=== PATIENT | female | born 1990 | race Two or more races ===

== ENCOUNTER → 2017-08-18 | Outpatient (CLI) | payer OTHER ==
[2017-08-18 14:06] LABS: ADD MAN DIFF? NO
[2017-08-18 14:12] LABS: BASO # 0.1 x10^3/uL (0.0-0.2); BASO % 1 % (0-3); EOS # 0.4 x10^3/uL (0.0-0.7); EOS % 5 % (0-3); HEMATOCRIT 40.7 % (36.0-47.0); HEMOGLOBIN 13.6 g/dL (12.0-15.5); LYMPH # 2.2 x10^3/uL (1.0-4.8); LYMPH % 26 % (24-48); MEAN CORPUSCULAR HEMOGLOBIN 30 pg (25-35); MEAN CORPUSCULAR HGB CONC 33 g/dL (31-37); MEAN CORPUSCULAR VOLUME 89 fL (79-100); MONO # 0.5 x10^3/uL (0.0-1.1); MONO % 6 % (0-9); NEUT # 5.5 x10^3uL (1.8-7.7); NEUT % 63 % (31-73); PLATELET COUNT 299 x10^3/uL (140-400); RED BLOOD COUNT 4.57 x10^6/uL (3.50-5.40); RED CELL DISTRIBUTION WIDTH 13.4 % (11.5-14.5); WHITE BLOOD COUNT 8.8 x10^3/uL (4.0-11.0)
[2017-08-18 14:37] LABS: ALBUMIN 3.5 g/dL (3.4-5.0); ALBUMIN/GLOBULIN RATIO 0.8 (1.0-1.7); ALK PHOS 69 U/L (46-116); ALT (SGPT) 24 U/L (14-59); ANION GAP 7 (6-14); AST (SGOT) 16 U/L (15-37); BLOOD UREA NITROGEN 8 mg/dL (7-20); BUN/CREATININE RATIO 11 (6-20); CARBON DIOXIDE 29 mmol/L (21-32); CHLORIDE 102 mmol/L (98-107); CHOLESTEROL 175 mg/dL (0-200); CHOLESTEROL/HDL RATIO 4.5; CREATININE 0.7 mg/dL (0.6-1.0); GLUCOSE 94 mg/dL (70-99); HDLC 39 mg/dL (40-60); LDLC 115 mg/dL (0-100); NON-HDL CHOLESTEROL 136 mg/dL (0-129); SODIUM 138 mmol/L (136-145); TOTAL BILIRUBIN 0.3 mg/dL (0.2-1.0); TOTAL PROTEIN 7.9 g/dL (6.4-8.2); TRIGLYCERIDES 104 mg/dL (0-150); VLDLC 21 mg/dL (0-40)
[2017-08-18 14:47] LABS: FREE T4 1.07 ng/dL (0.76-1.46)
[2017-08-18 14:47] LABS: THYROID STIM HORMONE (TSH) 2.366 uIU/mL (0.358-3.74)
[2017-08-19 05:19] LABS: RHEUMATOID FACTOR <10.0 IU/mL (0.0-13.9)
[2017-08-23 10:14] LABS: ANA INTERP Negative (.)
== END | disposition home or self-care (01) ==
LOC: RAD 13:50
DX: Z13.1 Encounter for screening for diabetes mellitus (principal); Z13.220 Encounter for screening for lipoid disorders; M25.562 Pain in left knee; M25.561 Pain in right knee
CPT/HCPCS: 36415; 73565; 80053; 80061; 84439; 84443; 85025; 86038; 86431

== ENCOUNTER 2018-03-09 11:21 | Emergency (ER) | payer OTHER ==
[~2018-03-09] VITALS: Ht 165.1 cm; Wt 78.5 kg
[2018-03-09 11:36] VITALS: BP 141/79
[2018-03-09 11:50] LABS: BILIRUBIN,URINE NEGATIVE (NEG); CLARITY,URINE CLEAR; COLOR,URINE YELLOW; NITRITE,URINE NEGATIVE (NEG); PH,URINE 6.5; PROTEIN,URINE NEGATIVE (NEG-TRACE)
[2018-03-09 12:08] LABS: BACTERIA,URINE MODERATE /HPF (0-FEW); RBC,URINE 0 /HPF (0-2); SQUAMOUS EPITHELIAL CELL,UR MOD /LPF
[2018-03-09] MEDS ORDERED: CIPR500T94 PO (12:48)
--- NOTE | 2018-03-09 13:55 | PHYS DOC ---
Past Medical History Past Medical History: No Pertinent History Past Surgical History: Appendectomy Alcohol Use: Rarely Drug Use: None Adult General Chief Complaint Chief Complaint: PAIN ON URINATION HPI HPI Patient is a 27 year old female who presents with pain on urination 2 days. She states that it is a burning sensation. She also has generalized lower back pain, subjective fever and has had chills at home. She denies nausea or vomiting. She is afebrile here. Review of Systems Review of Systems Constitutional: See history of present illness Eyes: Denies change in visual acuity, redness, or eye pain [] HENT: Denies nasal congestion or sore throat [] Respiratory: Denies cough or shortness of breath [] Cardiovascular: No additional information not addressed in HPI [] GI: Denies abdominal pain, nausea, vomiting, bloody stools or diarrhea [] : See history of present illness Musculoskeletal: Denies back pain or joint pain [] Integument: Denies rash or skin lesions [] Neurologic: Denies headache, focal weakness or sensory changes [] Endocrine: Denies polyuria or polydipsia [] All other systems were reviewed and found to be within normal limits, except as documented in this note. Allergies Allergies Allergies Coded Allergies Type Severity Reaction Last Updated Verified No Known Drug Allergies 12/17/15 No Physical Exam Physical Exam Constitutional: Well developed, well nourished, no acute distress, non-toxic appearance. [] HENT: Normocephalic, atraumatic, bilateral external ears normal, oropharynx moist, no oral exudates, nose normal. [] Eyes: PERRLA, EOMI, conjunctiva normal, no discharge. [] Neck: Normal range of motion, no tenderness, supple, no stridor. [] Cardiovascular:Heart rate regular rhythm, no murmur [] Lungs & Thorax: Bilateral breath sounds clear to auscultation [] Abdomen: Bowel sounds normal, soft, no tenderness, no masses, no pulsatile masses. [] Skin: Warm, dry, no erythema, no rash. [] Back: Generalized low back tenderness, no CVA tenderness. [] Extremities: No tenderness, no cyanosis, no clubbing, ROM intact, no edema. [] Neurologic: Alert and oriented X 3, normal motor function, normal sensory function, no focal deficits noted. [] Psychologic: Affect normal, judgement normal, mood normal. [] Current Patient Data Vital Signs Vital Signs Date Time Temp Pulse Resp B/P (MAP) Pulse Ox O2 Delivery O2 Flow Rate FiO2 03/09/18 11:36 98.5 101 20 141/79 (99) 96 Nasal Cannula 98.5 Lab Values Laboratory Tests Test 03/09/18 11:40 03/09/18 11:49 Urine Collection Type Unknown Urine Color Yellow Urine Clarity Clear Urine pH 6.5 Urine Specific [place] 1.025 Urine Protein Negative mg/dL (NEG-TRACE) Urine Glucose (UA) Negative mg/dL (NEG) Urine Ketones (Stick) Negative mg/dL (NEG) Urine Blood Negative (NEG) Urine Nitrite Negative (NEG) Urine Bilirubin Negative (NEG) Urine Urobilinogen Dipstick 1.0 mg/dL (0.2 mg/dL) Urine Leukocyte Esterase Small (NEG) Urine RBC 0 /HPF (0-2) Urine WBC 5-10 /HPF (0-4) Urine Squamous Epithelial Cells Mod /LPF Urine Bacteria Moderate /HPF (0-FEW) Urine Mucus Slight /LPF POC Urine HCG, Qualitative Hcg negative (Negative) EKG EKG [] Radiology/Procedures Radiology/Procedures [] Course & Med Decision Making Course & Med Decision Making Pertinent Labs and Imaging studies reviewed. (See chart for details) [] Dragon Disclaimer Dragon Disclaimer This electronic medical record was generated, in whole or in part, using a voice recognition dictation system. Departure Departure Impression: Primary Impression: Urinary tract infection Disposition: HOME, SELF-CARE Condition: STABLE Patient Instructions: Urinary Tract Infection Additional Instructions: Increase fluids and rest. Follow-up with your primary care provider in one week for urine recheck or return to the emergency department if worsening. Scripts Ciprofloxacin Hcl (CIPRO) 500 Mg Tablet 1 TAB PO BID, #14 TAB Prov: MAIRA MAYORGA APRN 03/09/18 MAIRA MAYORGA APRN Mar 09, 2018 13:55
== END 2018-03-09 12:55 | disposition home or self-care (01) ==
LOC: ER 11:21
DX: N39.0 Urinary tract infection, site not specified (principal); Z90.89 Acquired absence of other organs
CPT/HCPCS: 81001; 81025; 87086; 99284

== ENCOUNTER → 2018-09-14 | Outpatient (CLI) | payer OTHER ==
[~2018-09-14] MED LIST: CIPR500T94 PO
[2018-09-15 02:11] LABS: HEMOGLOBIN A1C 5.7 % (4.8-5.6)
== END | disposition home or self-care (01) ==
LOC: LAB 11:48
PROVIDERS: ATTEND Family Medicine
DX: Z00.01 Encounter for general adult medical examination with abnormal findings (principal)
CPT/HCPCS: 36415; 83036

== ENCOUNTER 2018-12-09 22:20 | Emergency (ER) | payer OTHER ==
[~2018-12-09] VITALS: Ht 165.1 cm; Wt 83.9 kg
[2018-12-09 22:25] VITALS: BP 166/91
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
[2018-12-09] MEDS ORDERED: NAPR500T8 PO (23:31)
[2018-12-09] MEDS ORDERED: TRIA15OI TP (23:31)
[2018-12-09] MEDS ORDERED: CYCL10TA2 PO (23:31)
[2018-12-09] MEDS ORDERED: diphenhydrAMINE HCL 25 MG CAPSULE PO ONE (23:45)
[2018-12-09] MEDS ORDERED: CYCLOBENZAPRINE 10 MG TABLET. PO ONE (23:45)
[2018-12-09] MEDS ORDERED: predniSONE 10 MG TABLET PO ONE (23:45)
[2018-12-09] MEDS ORDERED: NAPROXEN 500 MG TABLET PO ONE (23:45)
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
== END 2018-12-09 23:44 | disposition home or self-care (01) ==
LOC: ER 22:20
DX: S50.12XA Contusion of left forearm, initial encounter (principal); S70.02XA Contusion of left hip, initial encounter; L25.9 Unspecified contact dermatitis, unspecified cause; R07.81 Pleurodynia; W55.12XA Struck by horse, initial encounter; Y93.89 Activity, other specified; Y92.89 Other specified places as the place of occurrence of the external cause; Y99.8 Other external cause status
CPT/HCPCS: 71101; 73090; 73502; 99284; J7512; Q0163

== ENCOUNTER → 2019-04-14 | Outpatient (CLI) | payer OTHER ==
[~2019-04-14] MED LIST changes: +CYCL10TA2 PO; +NAPR500T8 PO; +TRIA15OI TP
[2019-04-14 12:47] LABS: ALBUMIN 4.1 g/dL (3.4-5.0); ALBUMIN/GLOBULIN RATIO 0.9 (1.0-1.7); CREATININE 0.7 mg/dL (0.6-1.0); GFR 100.4; POTASSIUM 3.9 mmol/L (3.5-5.1); TOTAL BILIRUBIN 0.4 mg/dL (0.2-1.0); TOTAL PROTEIN 8.8 g/dL (6.4-8.2)
[2019-04-14 12:51] LABS: CHOLESTEROL/HDL RATIO 5.2
--- NOTE | 2019-04-14 13:10 | RAD ---
Examination: MRI of the right knee without contrast HISTORY: History of right knee pain, trauma, fall, anteromedial knee pain COMPARISON: None available TECHNIQUE: Multiplanar, multisequence MR imaging of the right knee was performed without contrast. Findings: The anterior cruciate ligament, posterior cruciate ligament appear intact. The medial meniscus, lateral meniscus appear intact. The extensor mechanism is intact. The medial collateral ligament is intact. Lateral collateral ligamentous complex including the fibular collateral ligament, biceps femoris tendon, popliteus tendon appear intact. Small knee joint effusion is identified. Deep fissuring of cartilage identified in the patellofemoral compartment. There is a 1.4 cm isointense T1 increased signal identified abutting the deep portion of the patella and extending inferiorly best visualized on series 4 image #13 could be scarring change or fibrosis or synovial thickening. Mild increased T2 signal identified in the Hoffa's fat pad laterally deep to the infrapatellar tendon. Minimal lateral patellar tilting identified. Tiny popliteal cyst. Small knee joint effusion. IMPRESSION: 1. A 1.4 cm isointense T1 increased signal identified abutting the deep portion of the inferior medial patella best visualized on series 4 image #13 could be scarring change or fibrosis or synovial thickening. 2. Mild increased T2 signal identified in the Hoffa's fat pad laterally deep to the infrapatellar tendon could be secondary to impingement. 3. Grade II chondromalacia patella. 4. Small knee joint effusion with a tiny popliteal cyst. Electronically signed by: Max Riggins MD (04/14/2019 1:07 PM) [id number]
--- NOTE | 2019-04-14 14:02 | RAD ---
EXAM: Bilateral knees, standing view. HISTORY: Pain. COMPARISON: None. FINDINGS: A frontal view of the knees is obtained. There is no fracture, dislocation or subluxation. IMPRESSION: No acute osseous finding. Electronically signed by: Keyla Bustamante MD (04/14/2019 1:59 PM) [place] [id number]
[2019-04-15 00:07] LABS: HEMOGLOBIN A1C 5.6 % (4.8-5.6)
== END | disposition home or self-care (01) ==
LOC: MRI 11:02
PROVIDERS: ATTEND Physical Medicine & Rehabilitation
DX: S83.8X1A Sprain of other specified parts of right knee, initial encounter (principal); M94.261 Chondromalacia, right knee; M25.461 Effusion, right knee; M71.21 Synovial cyst of popliteal space [Baker], right knee; M79.4 Hypertrophy of (infrapatellar) fat pad; X58.XXXA Exposure to other specified factors, initial encounter; Y93.89 Activity, other specified; Y92.89 Other specified places as the place of occurrence of the external cause; Y99.8 Other external cause status
CPT/HCPCS: 36415; 73565; 73721; 80053; 80061; 83036

== ENCOUNTER 2019-04-23 14:13 | Emergency (ER) | payer OTHER ==
[~2019-04-23] VITALS: Ht 165.1 cm; Wt 83.5 kg
[2019-04-23 15:20] LABS: BILIRUBIN,URINE NEGATIVE (NEG); CLARITY,URINE CLEAR; COLOR,URINE YELLOW; NITRITE,URINE NEGATIVE (NEG); PH,URINE 6.5; PROTEIN,URINE NEGATIVE (NEG-TRACE); UROBILINOGEN,URINE 0.2 mg/dL (0.2 mg/dL)
[2019-04-23 15:26] LABS: BASO # 0.1 x10^3/uL (0.0-0.2); BASO % 1 % (0-3); EOS # 0.4 x10^3/uL (0.0-0.7); EOS % 5 % (0-3); HEMATOCRIT 39.4 % (36.0-47.0); HEMOGLOBIN 13.6 g/dL (12.0-15.5); LYMPH # 2.5 x10^3/uL (1.0-4.8); LYMPH % 29 % (24-48); MEAN CORPUSCULAR HEMOGLOBIN 31 pg (25-35); MEAN CORPUSCULAR HGB CONC 34 g/dL (31-37); MEAN CORPUSCULAR VOLUME 89 fL (79-100); MONO # 0.5 x10^3/uL (0.0-1.1); MONO % 6 % (0-9); NEUT % 59 % (31-73); PLATELET COUNT 325 x10^3/uL (140-400); RED BLOOD COUNT 4.41 x10^6/uL (3.50-5.40); RED CELL DISTRIBUTION WIDTH 13.3 % (11.5-14.5); WHITE BLOOD COUNT 8.6 x10^3/uL (4.0-11.0)
[2019-04-23 15:30] LABS: RBC,URINE 0 /HPF (0-2)
[2019-04-23 15:31] LABS: BACTERIA,URINE FEW /HPF (0-FEW); SQUAMOUS EPITHELIAL CELL,UR OCC /LPF; WBC,URINE RARE /HPF (0-4)
[2019-04-23 15:35] LABS: CALCIUM 8.9 mg/dL (8.5-10.1); CREATININE 0.7 mg/dL (0.6-1.0); GFR 100.4; POTASSIUM 3.7 mmol/L (3.5-5.1)
--- NOTE | 2019-04-23 15:38 | PHYS DOC ---
Past Medical History Past Medical History: No Pertinent History, Ovarian Cyst Past Surgical History: Appendectomy Alcohol Use: Rarely Drug Use: None Adult General Chief Complaint Chief Complaint: ABDOMINAL PAIN HPI HPI Patient is a 28 year old female who presents with right lower quadrant pain coming and going since last night. Patient states it is a sharp intermittent pain. Patient has had her appendix out in the past. Patient states that she's had a previous right ovarian cyst. Patient states this morning the pain began again after she urinated. She denies any dysuria symptoms. Patient states she is in no pain at this time. She denies nausea, vomiting, diarrhea, fever, dysuria, chest pain, shortness of air, recent illness. Review of Systems Review of Systems GI: RLQ abdominal pain, Denies nausea, vomiting, bloody stools or diarrhea [] All other systems were reviewed and found to be within normal limits, except as documented in this note. Current Medications Current Medications Current Medications Medications (Trade) Dose Ordered Sig/Marine Start Time Stop Time Status Last Admin Dose Admin Fentanyl Citrate (Fentanyl 2ml Vial) 50 mcg 1X ONCE 04/23/19 16:45 04/23/19 16:49 DC 04/23/19 16:47 50 MCG Allergies Allergies Allergies Coded Allergies Type Severity Reaction Last Updated Verified No Known Drug Allergies 12/17/15 No Physical Exam Physical Exam Constitutional: Well developed, well nourished, no acute distress, non-toxic appearance. [] HENT: Normocephalic, atraumatic, bilateral external ears normal, oropharynx moist, no oral exudates, nose normal. [] Eyes: PERRLA, EOMI, conjunctiva normal, no discharge. [] Neck: Normal range of motion, no tenderness, supple, no stridor. [] Cardiovascular:Heart rate regular rhythm, no murmur [] Lungs & Thorax: Bilateral breath sounds clear to auscultation [] Abdomen: Bowel sounds normal, soft, no tenderness, no masses, no pulsatile masses. [] Skin: Warm, dry, no erythema, no rash. [] Back: No tenderness, no CVA tenderness. [] Extremities: No tenderness, no cyanosis, no clubbing, ROM intact, no edema. [] Neurologic: Alert and oriented X 3, normal motor function, normal sensory function, no focal deficits noted. [] Psychologic: Affect normal, judgement normal, mood normal. Normal physical exam [] Current Patient Data Vital Signs Vital Signs Date Time Temp Pulse Resp B/P (MAP) Pulse Ox O2 Delivery O2 Flow Rate FiO2 04/23/19 16:47 16 99 Room Air 04/23/19 14:58 97.9 82 134/94 (107) 97.9 Lab Values Laboratory Tests Test 04/23/19 14:52 04/23/19 14:58 04/23/19 15:20 Urine Collection Type Unknown Urine Color Yellow Urine Clarity Clear Urine pH 6.5 Urine Specific [place] 1.015 Urine Protein Negative mg/dL (NEG-TRACE) Urine Glucose (UA) Negative mg/dL (NEG) Urine Ketones (Stick) Negative mg/dL (NEG) Urine Blood Negative (NEG) Urine Nitrite Negative (NEG) Urine Bilirubin Negative (NEG) Urine Urobilinogen Dipstick 0.2 mg/dL (0.2 mg/dL) Urine Leukocyte Esterase Negative (NEG) Urine RBC 0 /HPF (0-2) Urine WBC Rare /HPF (0-4) Urine Squamous Epithelial Cells Occ /LPF Urine Bacteria Few /HPF (0-FEW) Urine Mucus Mod /LPF POC Urine HCG, Qualitative Hcg negative (Negative) White Blood Count 8.6 x10^3/uL (4.0-11.0) Red Blood Count 4.41 x10^6/uL (3.50-5.40) Hemoglobin 13.6 g/dL (12.0-15.5) Hematocrit 39.4 % (36.0-47.0) Mean Corpuscular Volume 89 fL (79-100) Mean Corpuscular Hemoglobin 31 pg (25-35) Mean Corpuscular Hemoglobin Concent 34 g/dL (31-37) Red Cell Distribution Width 13.3 % (11.5-14.5) Platelet Count 325 x10^3/uL (140-400) Neutrophils (%) (Auto) 59 % (31-73) Lymphocytes (%) (Auto) 29 % (24-48) Monocytes (%) (Auto) 6 % (0-9) Eosinophils (%) (Auto) 5 % (0-3) H Basophils (%) (Auto) 1 % (0-3) Neutrophils # (Auto) 5.0 x10^3/uL (1.8-7.7) Lymphocytes # (Auto) 2.5 x10^3/uL (1.0-4.8) Monocytes # (Auto) 0.5 x10^3/uL (0.0-1.1) Eosinophils # (Auto) 0.4 x10^3/uL (0.0-0.7) Basophils # (Auto) 0.1 x10^3/uL (0.0-0.2) Sodium Level 137 mmol/L (136-145) Potassium Level 3.7 mmol/L (3.5-5.1) Chloride Level 101 mmol/L (98-107) Carbon Dioxide Level 27 mmol/L (21-32) Anion Gap 9 (6-14) Blood Urea Nitrogen 10 mg/dL (7-20) Creatinine 0.7 mg/dL (0.6-1.0) Estimated GFR (Cockcroft-Gault) 100.4 BUN/Creatinine Ratio 14 (6-20) Glucose Level 92 mg/dL (70-99) Calcium Level 8.9 mg/dL (8.5-10.1) Total Bilirubin 0.3 mg/dL (0.2-1.0) Aspartate Amino Transferase (AST) 12 U/L (15-37) L Alanine Aminotransferase (ALT) 16 U/L (14-59) Alkaline Phosphatase 64 U/L (46-116) Total Protein 8.2 g/dL (6.4-8.2) Albumin 3.8 g/dL (3.4-5.0) Albumin/Globulin Ratio 0.9 (1.0-1.7) L Laboratory Tests 04/23/19 15:20 Laboratory Tests 04/23/19 15:20 EKG EKG [] Radiology/Procedures Radiology/Procedures [] Impressions: [facility] [address] [place] [address] IMAGING REPORT Signed PATIENT: MANSOOR ZHAOCOUNT: [id number] : 1990 LOCATION: ER AGE: 28 SEX: F EXAM STATUS: REG ER ORD. PHYSICIAN: KEARA OCONNOR APRN REASON: RLQ PAIN. HX CYST PROCEDURE: PELVIS W/TV Exam performed: Pelvic Ultrasound. Indication: Right lower quadrant pain, history of cysts Date of Service: 04/23/2019. Comparison: None available Technique: Transabdominal and transvaginal Findings: The uterus is anteverted and measures 7.5 x 4.6 x 5.3 cm. The endometrial stripe 1.3 cm Both ovaries are normal. The right ovary measures 2.0 x 2.5 cm , the left ovary measures 2.5 x 3.1 x 3.3 cm. Symmetric vascularity seen in both ovaries. There is no solid or cystic mass lesion. Small amount of free fluid is seen in the right adnexa Impression: 1. Essentially unremarkable exam. Electronically signed by: Catina Ramirez MD (04/23/2019 5:19 PM) [facility] DICTATED and SIGNED BY: CATINA RAMIREZ MD DATE: 04/23/19 1719 Course & Med Decision Making Course & Med Decision Making Alert and oriented. Speaks in full clear sentences. Skin pink warm and dry. Vital signs within normal limits. Abdomen is soft and nontender. She denies any pain. States the pain is not there at this time. Ambulatory with a steady gait. Lungs are clear to auscultation in all lobes. Afebrile. Denies any nausea at this time. States her last was her period was April 02 and it was light. Denies abnormal vaginal bleeding or discharge. Labwork unremarkable. Urinalysis is unremarkable. Ultrasound is unremarkable. Patient to follow-up with her primary care provider. Dragon Disclaimer Dragon Disclaimer This electronic medical record was generated, in whole or in part, using a voice recognition dictation system. Departure Departure Impression: Primary Impression: Abdominal pain Disposition: HOME, SELF-CARE Condition: STABLE Referrals: DAMIAN LAWSON MD (PCP) Patient Instructions: Abdominal Pain (Nonspecific) Additional Instructions: Follow-up with her primary care provider. Take ibuprofen and try using a heating pad. Problem Qualifiers Primary Impression: Abdominal pain Abdominal location: right lower quadrant Qualified Codes: R10.31 - Right lower quadrant pain KEARA OCONNOR SAUSAGE TIER Apr 23, 2019 15:38
[2019-04-23 15:40] LABS: ALBUMIN 3.8 g/dL (3.4-5.0); ALBUMIN/GLOBULIN RATIO 0.9 (1.0-1.7); TOTAL BILIRUBIN 0.3 mg/dL (0.2-1.0); TOTAL PROTEIN 8.2 g/dL (6.4-8.2)
[2019-04-23] MEDS ORDERED: fentaNYL PF VIAL 100 MCG/2 ML VIAL IVP ONE (16:45)
--- NOTE | 2019-04-23 17:21 | RAD ---
Exam performed: Pelvic Ultrasound. Indication: Right lower quadrant pain, history of cysts Date of Service: 04/23/2019. Comparison: None available Technique: Transabdominal and transvaginal Findings: The uterus is anteverted and measures 7.5 x 4.6 x 5.3 cm. The endometrial stripe 1.3 cm Both ovaries are normal. The right ovary measures 2.0 x 2.5 cm , the left ovary measures 2.5 x 3.1 x 3.3 cm. Symmetric vascularity seen in both ovaries. There is no solid or cystic mass lesion. Small amount of free fluid is seen in the right adnexa Impression: 1. Essentially unremarkable exam. Electronically signed by: Catina Ramirez MD (04/23/2019 5:19 PM) [facility]
[2019-04-23 17:30] VITALS: BP 108/62
== END 2019-04-23 18:00 | disposition home or self-care (01) ==
LOC: ER 14:13
DX: R10.31 Right lower quadrant pain (principal); Z90.49 Acquired absence of other specified parts of digestive tract
CPT/HCPCS: 36415; 76830; 76856; 80053; 81001; 81025; 85025; 96374; 99285; J3010

== ENCOUNTER → 2019-10-30 | Outpatient (CLI) | payer OTHER ==
[2019-04-29 16:55] VITALS: BP 114/69
[~2019-10-30] MED LIST changes: +METR500T PO; +NAPR-683 PO
== END | disposition home or self-care (01) ==
LOC: SPEC 15:29
PROVIDERS: ATTEND Family Medicine
DX: N30.90 Cystitis, unspecified without hematuria (principal)
CPT/HCPCS: 87086

== ENCOUNTER → 2019-12-20 | Outpatient (CLI) | payer OTHER ==
[2019-04-29 16:55] VITALS: BP 114/69
== END ==
LOC: SPEC 16:23
PROVIDERS: ATTEND Obstetrics & Gynecology
DX: Z01.419 Encounter for gynecological examination (general) (routine) without abnormal findings (principal)
CPT/HCPCS: 88175

== ENCOUNTER → 2020-04-08 | Outpatient (CLI) | payer OTHER ==
[2019-04-29 16:55] VITALS: BP 114/69
[2020-04-08 14:09] LABS: BASO # 0.1 x10^3/uL (0.0-0.2); BASO % 1 % (0-3); EOS # 0.2 x10^3/uL (0.0-0.7); EOS % 3 % (0-3); HEMATOCRIT 40.1 % (36.0-47.0); HEMOGLOBIN 13.7 g/dL (12.0-15.5); LYMPH # 2.2 x10^3/uL (1.0-4.8); LYMPH % 27 % (24-48); MEAN CORPUSCULAR HEMOGLOBIN 31 pg (25-35); MEAN CORPUSCULAR HGB CONC 34 g/dL (31-37); MEAN CORPUSCULAR VOLUME 90 fL (79-100); MONO # 0.4 x10^3/uL (0.0-1.1); MONO % 5 % (0-9); NEUT # 5.1 x10^3/uL (1.8-7.7); NEUT % 65 % (31-73); PLATELET COUNT 343 x10^3/uL (140-400); RED BLOOD COUNT 4.45 x10^6/uL (3.50-5.40); RED CELL DISTRIBUTION WIDTH 13.6 % (11.5-14.5); WHITE BLOOD COUNT 7.9 x10^3/uL (4.0-11.0)
== END ==
LOC: LAB 12:40
PROVIDERS: ATTEND Obstetrics & Gynecology
DX: Z34.01 Encounter for supervision of normal first pregnancy, first trimester (principal); Z3A.00 Weeks of gestation of pregnancy not specified
CPT/HCPCS: 36415; 85025; 86592; 86703; 86706; 86762; 86850; 86900; 86901; 87340

== ENCOUNTER → 2020-06-12 | Outpatient (CLI) | payer OTHER ==
[2019-04-29 16:55] VITALS: BP 114/69
--- NOTE | 2020-06-12 17:25 | RAD ---
EXAM: Obstetrics sonogram. HISTORY: Unsure dates. TECHNIQUE: Sonographic imaging of the pelvis was performed. COMPARISON: None. FINDINGS: The uterus measures 12.9 x 9.1 x 11.9 cm. There is a single intrauterine gestational sac an d pole. The crown-rump length is 8.0 cm, corresponding with 14 weeks and 0 days. There is a normal heart rate of 152 bpm. The gestational sac is normal in configuration and location. N o subchorionic hematoma is seen. The anatomic fluid volume is grossly normal. The maternal ovaries ar e obscured due to bowel gas. There is no pelvic free fluid. IMPRESSION: Single intrauterine fetus with normal heart rate and estimated gestational age of 14 week s and 0 days. Electronically signed by: Keyla Bustamante MD (06/12/2020 5:23 PM) [id number]
== END ==
LOC: US 16:02
PROVIDERS: ATTEND Obstetrics & Gynecology
DX: Z34.01 Encounter for supervision of normal first pregnancy, first trimester (principal); Z3A.14 14 weeks gestation of pregnancy
CPT/HCPCS: 76801

== ENCOUNTER → 2020-09-16 | Outpatient (CLI) | payer OTHER ==
[2019-04-29 16:55] VITALS: BP 114/69
== END ==
LOC: LAB 12:16
PROVIDERS: ATTEND Obstetrics & Gynecology
DX: Z34.92 Encounter for supervision of normal pregnancy, unspecified, second trimester (principal); Z3A.19 19 weeks gestation of pregnancy
CPT/HCPCS: 36415; 82947; 82950

== ENCOUNTER → 2020-11-28 | Outpatient (CLI) | payer OTHER ==
[2019-04-29 16:55] VITALS: BP 114/69
--- NOTE | 2020-11-29 18:17 | RAD ---
OB ultrasound greater than 14 weeks 11/28/2020 Clinical History: Third trimester . growth and weight. Technique: A real-time ultrasound examination of the gravid uterus was performed. Multiple images wer e obtained. Findings: Comparison study is dated 06/12/2020. There is a single living IUP. The fetus is in acephalic position. cardiac and somatic activity is seen. The heart rate is 120 beats per minutes. The maternal cervix is not well-visualized. T he placenta is in a fundal position. No abnormality is seen. The amniotic fluid volume is within norm al limits. The MARLI measures 7.5 cm. Neither maternal ovary is visualized. The following measurements were obtained: BPD 8.5cm 34 weeks to days HC 31.56 cm 35weeks 3 days AC 30.16 cm 34weeks 1 days FL 6.55 cm 33 weeks 5 days The estimated gestational age by ultrasound is 34 weeks 3 days plus or minus a standard deviation of 21 days. The estimated date of delivery by ultrasound on today's study is 01/06/2021. The estimated fe yoshi weight is 2365 g +/- 350 g (5 lbs. 3 oz.). Since the previous examination there has been delayed growth. The abdominal circumference is below the 10th percentile for gestational age. These fin dings are consistent with IUGR. Detailed evaluation of anatomy was not performed. Impression: Single living IUP with an estimated gestational age by ultrasound of 34 weeks3 days +/- a standard deviation of 21 days. The estimated weight is 236 5 g +/- 350 g (5 lbs. 3 oz.). Findi ngs are seen consistent with IUGR. Electronically signed by: Joe Garcia MD (11/29/2020 6:15 PM) [id number]
== END ==
LOC: US 16:00
PROVIDERS: ATTEND Obstetrics & Gynecology
DX: Z34.93 Encounter for supervision of normal pregnancy, unspecified, third trimester (principal); Z3A.34 34 weeks gestation of pregnancy
CPT/HCPCS: 76815

== ENCOUNTER 2020-11-30 10:58 | Observation (INO) | payer OTHER ==
[2019-04-29 16:55] VITALS: BP 114/69
[2020-11-30] MEDS ORDERED: ACETAMINOPHEN 325 MG TABLET. PO PRN (11:15)
[2020-11-30] MEDS ORDERED: IV RINGERS,LACTATED 1000ML 1,000 ML IV SCH (12:00)
[2020-11-30 12:06] LABS: BILIRUBIN,URINE NEGATIVE (NEG); CLARITY,URINE CLEAR; COLOR,URINE YELLOW; NITRITE,URINE NEGATIVE (NEG); PROTEIN,URINE NEGATIVE (NEG-TRACE)
[2020-11-30 12:17] LABS: BACTERIA,URINE FEW /HPF (0-FEW); RBC,URINE 0 /HPF (0-2); WBC,URINE OCC /HPF (0-4)
== END 2020-11-30 12:38 | disposition home or self-care (01) ==
LOC: 3 SO LND 10:58
PROVIDERS: ADMIT Obstetrics & Gynecology; ATTEND Obstetrics & Gynecology
DX: O26.893 Other specified pregnancy related conditions, third trimester (principal); R10.30 Lower abdominal pain, unspecified; N89.8 Other specified noninflammatory disorders of vagina; O13.3 Gestational [pregnancy-induced] hypertension without significant proteinuria, third trimester; O62.9 Abnormality of forces of labor, unspecified; Z3A.30 30 weeks gestation of pregnancy
CPT/HCPCS: 59025; 81001; G0378; G0379